=== PATIENT | male | born 1950 | race Caucasian/White ===

== ENCOUNTER 2025-05-19 07:30 | Observation (INO) ==
--- NOTE | 2025-04-25 09:48 | PAT Medication Instructions ---
Medication Instructions Date of Service April 25, 2025 Home Medications amlodipine 10 mg tablet 10 mg PO QAM aspirin 81 mg capsule 81 mg PO QPM carvedilol 6.25 mg tablet 6.25 mg PO BID duloxetine 30 mg capsule,delayed release 30 mg PO QAM empagliflozin 25 mg tablet (Jardiance) 25 mg PO QAM ferrous sulfate 325 mg (65 mg iron) tablet 325 mg PO QDL insulin glargine 100 unit/mL (3 mL) subcutaneous pen (Lantus Solostar U-100 Insulin) 20 unit subcut QAM insulin lispro 100 unit/mL subcutaneous pen 1 sliding scale dose subcut USEASDIRECTD lisinopril 20 mg tablet 20 mg PO QPM metformin 500 mg tablet 500 mg PO BID pregabalin 75 mg capsule (Lyrica) 75 mg PO TID tamsulosin 0.4 mg capsule (Flomax) 0.8 mg PO QAM rosuvastatin 20 mg tablet 20 mg PO QPM ASK your prescriber and surgeon aspirin 81 mg capsule 81 mg PO QPM STOP taking 3 days before surgery empagliflozin 25 mg tablet (Jardiance) 25 mg PO QAM DO NOT take the morning of surgery ferrous sulfate 325 mg (65 mg iron) tablet 325 mg PO QDL insulin lispro 100 unit/mL subcutaneous pen 1 sliding scale dose subcut USEASDIRECTD metformin 500 mg tablet 500 mg PO BID Take morning of surgery With a small sip of water, OTHERWISE NOTHING TO EAT OR DRINK AFTER MIDNIGHT: amlodipine 10 mg tablet 10 mg PO QAM carvedilol 6.25 mg tablet 6.25 mg PO BID duloxetine 30 mg capsule,delayed release 30 mg PO QAM pregabalin 75 mg capsule (Lyrica) 75 mg PO TID tamsulosin 0.4 mg capsule (Flomax) 0.8 mg PO QAM Take evening before surgery carvedilol 6.25 mg tablet 6.25 mg PO BID insulin lispro 100 unit/mL subcutaneous pen 1 sliding scale dose subcut USEASDIRECTD lisinopril 20 mg tablet 20 mg PO QPM metformin 500 mg tablet 500 mg PO BID pregabalin 75 mg capsule (Lyrica) 75 mg PO TID rosuvastatin 20 mg tablet 20 mg PO QPM Insulin Dependent Diabetic Patients * Test your blood sugar the morning of surgery * If Blood Sugar is GREATER THAN 150, take HALF of your regular dose of: insulin glargine 100 unit/mL (3 mL) subcutaneous pen (Lantus Solostar U-100 Insulin) * If Blood Sugar is LESS THAN 150, DO NOT TAKE ANY: insulin glargine 100 unit/mL (3 mL) subcutaneous pen (Lantus Solostar U-100 Insulin) Other Notes If you have any questions please call us at [phone] or [phone] or [phone] or [phone]
--- NOTE | 2025-05-01 14:49 | Anesthesiology Consultation ---
Date of Service May 01, 2025 Assessment & Plan (1) Encounter for pre-operative examination: awaiting: - repeat potassium level ordered by nephrology and will request if more recent carotid imaging was done as indicated in 01/14/2025 vascular note. - cardiology clearance 05/05/25: "...low to intermediate cardiac risk..." - nephrology clearance 05/02/25: "...does not follow strict low-potassium diet...renal function is remaining stable...hyperkalemia advised to increase Lokelma to 10 g oral TID x 2 days and then go back to daily...repeat serum potassium level next week..." - surgeon ordered PCP clearance 04/30/25: "...moderate to high risk...average to high risk for secondary complications from any surgery. However, it is my belief that his chronic medical conditions are as optimized as they are likely to be and should proceed with the surgery..." - vascular surgery office note 01/14/25: "...no new complaints...denies the presence of focal neuro deficits...severe right ICA stenosis and mild left ICA stenosis, stable, asymptomatic. This is not yet at the severity to consider intervention. Discussed this with the patient as well as the recommendation to f/u in 6 months with a repeat duplex...carotid dopplers were done today..." - surgical clearance given parathyroidectomy 01/2025: "...6 weeks after his previous surgery lapsed on 03/17/2025...cleared to have back surgery..." Chart Review Chart Review: Pending: Refer to Additional Notes / Consult section and Patient seen in Pre Admission Testing Teaching & Discussion Pre-Anesthesia Teaching/Discussion Notes: Instructed NPO after midnight before surgery, except medications with 15 cc of water. Medication instructions provided according to the PAT guidelines. History Surgery Operation Date: 05/19/25 07:45 Proposed Procedures p L3-S1 Decompression and Fusion with Spinal Cord Monitoring - Mushtaq Mitchell DO Height/Weight Height: 5 ft 8 in Weight: 83.2 kg Allergies Allergy/AdvReac Type Severity Reaction Status Date / Time morphine Allergy Severe Anaphylaxis Verified 04/24/25 14:58 Medications Home Medications Medication Instructions Recorded Confirmed Last Taken amlodipine 10 mg tablet 10 mg PO QAM 10/22/24 04/24/25 Unknown aspirin 81 mg capsule 81 mg PO QPM 10/22/24 04/24/25 Unknown carvedilol 6.25 mg tablet 6.25 mg PO BID 10/22/24 04/24/25 Unknown duloxetine 30 mg capsule,delayed 30 mg PO QAM 10/22/24 04/24/25 Unknown release empagliflozin 25 mg tablet 25 mg PO QAM 10/22/24 04/24/25 Unknown (Jardiance) ferrous sulfate 325 mg (65 mg 325 mg PO QDL 10/22/24 04/24/25 Unknown iron) tablet insulin glargine 100 unit/mL (3 20 unit subcut QAM 10/22/24 04/24/25 Unknown mL) subcutaneous pen (Lantus Solostar U-100 Insulin) insulin lispro 100 unit/mL 1 sliding scale dose subcut 10/22/24 04/24/25 Unknown subcutaneous pen USEASDIRECTD lisinopril 20 mg tablet 20 mg PO QPM 10/22/24 04/24/25 Unknown metformin 500 mg tablet 500 mg PO BID 10/22/24 04/24/25 Unknown pregabalin 75 mg capsule (Lyrica) 75 mg PO TID 10/22/24 04/24/25 Unknown tamsulosin 0.4 mg capsule (Flomax) 0.8 mg PO QAM 10/22/24 04/24/25 Unknown rosuvastatin 20 mg tablet 20 mg PO QPM 04/24/25 04/24/25 Unknown semaglutide 0.25 mg or 0.5 mg (2 mg subcut 05/01/25 Unknown mg/1.5 mL) subcutaneous pen injector Past Medical History Medical History Anemia BPH (benign prostatic hyperplasia) CAD (coronary artery disease) CABG x4 (2014) Cardiac stents 2 or 3 (most recent ~2011) Now follows with Dr Vinay Shirley Carotid artery stenosis Follows with vascular (Dr. Bettencourt) Diabetes mellitus, type 2 IDDM Hearing deficit History of basal cell carcinoma History of bloody stools 03/2025 - reason for Colon/EGD - unfounded - related to hemorrhoids History of [place] (myocardial infarction) (2008) History of shingles Hx 12/2023 Residual has nerve pain, taking duloxetine Hypertension controlled, stable per pt Patient denies h/o stroke, seizures, heart failure, blood clots/DVTs or blood transfusions. Exercise / Class Metabolic Activity III < 4 Walking/Shop/Light housework (ambulates with cane, denies chest discomfort or shortness of breath with usual activities) Past Family History Family History Other No family history of adverse response to anesthesia Past Surgical History Surgical History History of basal cell carcinoma (BCC) excision removed in office History of bilateral cataract extraction History of bone marrow biopsy (03/12/25) [facility] History of cardiac cath Stents 2 or 3 total (most recent 2011), [facility] [place] CABG x4 (2014), [place] 11/2024, while in hospital w/flu, no stents, [facility] [place] History of colonoscopy (03/18/25) History of esophagogastroduodenoscopy (EGD) (03/18/25) History of left inguinal hernia repair History of parathyroidectomy (02/03/25) [facility] History of quadruple bypass (2014) CABG x4, History of right inguinal hernia repair History of sinus surgery History of wisdom tooth extraction Past Anesthesia History No Hx of Anesthesia Complications and No Family Hx of Anesthesia Complications History of PONV No Hx of PONV and No Hx of Motion Sickness Social History Smoking Status: Former smoker Do You Dip or Chew Tobacco: No (occasional early 20's only) Smoking End Date: in early only Hx Alcohol Use: Yes Alcohol type: beer alcohol intake frequency: holidays/special occasions only Hx Substance Use: No substance use type: does not use Review of Systems Snoring, denies witnessed apneas. Patient denies chest pain, shortness of breath, dyspnea on exertion, reflux, fever, chills, cough, wheezing, or palpitations. Physical Exam Vital Signs Vitals BP 128/65 P 65 TEMP 97.7 SP02 94% on RA RESP Physical Patient resting comfortably in chair in no acute distress, alert and oriented, responding appropriately throughout visit Full cervical extension range of motion without pain TMD 3.5 finger breadths Mallampati Score 3 Dentition: intact, denies chipped or loose teeth, caps/crowns, implants or bridges Lungs: normal respiratory effort. Good air movement, clear throughout to auscultation, no adventitious breath sounds Cardiac: regular rate and rhythm, no murmurs noted Carotid arteries: negative bruit bilat Lab Results Anesthesia Preop Results Results Anesthesia Widget: WBC 8.56 K/ul (4.8-10.8) 03/12/25 Hgb 10.2 g/dl (14.0-18.0) L 03/12/25 Hct 31.9 % (42.0-52.0) L 03/12/25 Plt 297 K/uL (130-400) 03/12/25 Na 137 mmol/L (136-145) 05/01/25 K 6.1 mmol/L (3.5-5.1) H* 05/01/25 Cl 106 mmol/L (98-107) 05/01/25 CO2 25 mmol/L (21-32) 05/01/25 BUN 40 mg/dl (6-23) H 05/01/25 Creat 1.81 mg/dl (0.6-1.4) H 05/01/25 Glucose Level 166 mg/dl (70-99(Fasting)) H 05/01/25 PT 10.2 Seconds (9.0-12.0) 05/01/25 PTT 27 Seconds (21-31) 05/01/25 INR 0.9 (0.9-1.1) 05/01/25 HA1c 7.0 % (4.5-5.6) H 05/01/25 Urine Color Dark Yellow 05/01/25 Urine Appearance Clear (Clear) 05/01/25 Urine pH 5.0 (4.5-7.5) 05/01/25 Urine Specific [place] 1.028 (1.000-1.030) 05/01/25 Urine Protein 1+ (Negative) H 05/01/25 Urine Glucose (UA) 2+ (Negative) H 05/01/25 Urine Ketones Trace (Negative) H 05/01/25 Urine Blood Negative (Negative) 05/01/25 Urine Nitrite Negative (Negative) 05/01/25 Urine Bilirubin Negative (Negative) 05/01/25 Urine Urobilinogen Negative (Negative) 05/01/25 Urine Leukocyte Esterase Negative (Negative) 05/01/25 Urine WBC (Auto) 0-5 /hpf (0-5) 05/01/25 Urine RBC (Auto) 0-2 /hpf (0-2) 05/01/25 Urine Hyaline Casts (Auto) 0-2 /lpf (0-2) 05/01/25 Urine Epithelial Cells (Auto) 0-2 /hpf (0-2) 05/01/25 Urine Bacteria (Auto) None Seen (None Seen) 05/01/25 Blood Type A Negative 05/01/25 Antibody Screen NEGATIVE 05/01/25 Testing Laboratory Results Critical K was called to surgeon's office. Will also await PCP clearance. I also spoke with Eve with nephrology office regarding K of 6.1 who states she will notify provider. Electrocardiogram Date: 11/04/24 Sinus bradycardia, rate 57 bpm Chest X-Ray Date: 11/04/24 There is prior CABG. There is mild cardiomegaly without pulmonary vascular congestion. No effusion, consolidation, or pneumothorax. IMPRESSION: No acute findings. Echocardiogram Date: 10/24/23 EF 50-55% Mildly dilated RV, mild to moderately reduced systolic function Moderate mitral valve regurgitation Mild aortic regurgitation Mild tricuspid regurgitation RVSP/PASP is normal and measures < 30 mmHg Cardiac Catheterization Date: 12/18/24 Left main: heavily calcified 90% stenosis LAD: long heavily calcified severe diffuse 90% proximal stenosis at midsegment receives the PENNY, LAD upstream and downstream from the PENNY anastomosis that is patent-20% stenosis in graft LCx: 80% stenosis, mid segment receives SVG downstream is patent RCA: severe in-stent restenosis followed by chronic 100% total occlusion fills from the SVG, uptstream and downstream sites are patent Maximal medical therapy Other Testing Carotid doppler 07/10/24 > 70% stenosis right ICA < 50% stenosis left ICA
[2025-05-19] MEDS: ACETAMINOPHEN 500 MG TAB PO SCH (08:00)
[2025-05-19] MEDS: GABAPENTIN 300 MG CAP PO SCH (08:00)
[2025-05-19] MEDS: CeleBREX 200 MG CAP PO SCH (08:00)
[2025-05-19] MEDS: LR 60ML/HR IV SCH (08:01)
[2025-05-19] MEDS: LR 15ML/HR IV SCH (08:01)
[2025-05-19] MEDS ORDERED: LANTUS PER UNIT CHARGE SQ ONE (08:15)
[2025-05-19] MEDS: SODIUM CHLORIDE 0.9% 1,000 ML IV SCH (08:22)
[2025-05-19] MEDS ORDERED: MIDAZOLAM HCL 1 MG/ML 2ML VIAL ONE (08:36)
[2025-05-19] MEDS ORDERED: LIDOCAINE 2% 2 ML VIAL/AMP(20MG/ML) INFIL ONE ×2 (08:37)
[2025-05-19] MEDS ORDERED: ONDANSETRON INJ 2 MG/ML 2 ML VIAL ONE (08:38)
[2025-05-19] MEDS ORDERED: PROPOFOL IV EMULSION 10 MG/ML 20 ML VIAL IV ONE (08:38)
[2025-05-19] MEDS ORDERED: ROCURONIUM BROMIDE 10 MG/ML 5 ML VIAL IV ONE ×3 (08:38→11:29)
[2025-05-19] MEDS ORDERED: DEXAMETHASONE SOD INJ 4 MG/ML VIAL ONE (08:38)
[2025-05-19] MEDS: NovoLIN-R INSULIN PER UNIT CHARGE SQ ONE (08:42)
[2025-05-19 09:01] LABS: Anion Gap 6.0 (3-11); Blood Urea Nitrogen 33.0 mg/dl (6-23); Calcium 8.5 mg/dl (8.6-10.3); Carbon Dioxide 24.0 mmol/L (21-32); Chloride 109.0 mmol/L (98-107); Creatinine Clr Calc Pharmacy 41.3 ml/min; Glucose 174.0 mg/dl (70-99(Fasting)); Potassium 4.2 mmol/L (3.5-5.1); Sodium 139.0 mmol/L (136-145)
--- NOTE | 2025-05-19 09:23 | History & Physical Bridge Note ---
Date of Service May 19, 2025 History & Physical Bridge Note I have examined the patient, reviewed the History & Physical and in the interval since the performance of the History & Physical I have noted the following changes of clinical significance: no changes noted
--- NOTE | 2025-05-19 09:24 | History & Physical Report ---
Date of Service May 19, 2025 Assessment & Plan (1) Multilevel lumbosacral spondylosis with radiculopathy: Plan: Decompression and fusion L3-S1 History of Present Illness Chief Complaint: Back and leg pain Primary Care Provider: TEZ Chavez This is a 75-year-old male who presents chronic persistent back and leg pain of failing course of nonoperative care is here for surgical invention. Allergies Allergy/AdvReac Type Severity Reaction Status Date / Time morphine Allergy Severe Anaphylaxis Verified 05/19/25 07:37 Home Medications Medication Instructions Recorded Confirmed Type amlodipine 10 mg tablet 10 mg PO QAM 10/22/24 05/19/25 History aspirin 81 mg capsule 81 mg PO QPM 10/22/24 05/19/25 History carvedilol 6.25 mg tablet 6.25 mg PO BID 10/22/24 05/19/25 History duloxetine 30 mg capsule,delayed 30 mg PO QAM 10/22/24 05/19/25 History release empagliflozin 25 mg tablet 25 mg PO QAM 10/22/24 05/19/25 History (Jardiance) ferrous sulfate 325 mg (65 mg 325 mg PO QDL 10/22/24 05/19/25 History iron) tablet insulin glargine 100 unit/mL (3 20 unit subcut QAM 10/22/24 05/19/25 History mL) subcutaneous pen (Lantus Solostar U-100 Insulin) insulin lispro 100 unit/mL 1 sliding scale dose subcut 10/22/24 05/19/25 History subcutaneous pen USEASDIRECTD lisinopril 20 mg tablet 20 mg PO QPM 10/22/24 05/19/25 History metformin 500 mg tablet 500 mg PO BID 10/22/24 05/19/25 History pregabalin 75 mg capsule (Lyrica) 75 mg PO TID 10/22/24 05/19/25 History tamsulosin 0.4 mg capsule (Flomax) 0.8 mg PO QAM 10/22/24 05/19/25 History rosuvastatin 20 mg tablet 20 mg PO QPM 04/24/25 05/19/25 History semaglutide 0.25 mg or 0.5 mg (2 0.25 mg subcut WK 05/01/25 05/19/25 History mg/1.5 mL) subcutaneous pen injector sodium zirconium cyclosilicate 10 10 g PO DAILY 05/19/25 05/19/25 History gram oral powder packet (Lokelma) Past Med/Surg History Problem List (Updated 05/19/25 @ 09:24 by Mushtaq Mitchell, DO) Multilevel lumbosacral spondylosis with radiculopathy Medical History Anemia BPH (benign prostatic hyperplasia) CAD (coronary artery disease) CABG x4 (2014) Cardiac stents 2 or 3 (most recent ~2011) Now follows with Dr Vinay Sewell Carotid artery stenosis Follows with vascular (Dr. Bettencourt) Diabetes mellitus, type 2 IDDM Hearing deficit History of basal cell carcinoma History of bloody stools 03/2025 - reason for Colon/EGD - unfounded - related to hemorrhoids History of [place] (myocardial infarction) (2008) History of shingles Hx 12/2023 Residual has nerve pain, taking duloxetine Hypertension controlled, stable per pt Surgical History History of basal cell carcinoma (BCC) excision removed in office History of bilateral cataract extraction History of bone marrow biopsy (03/12/25) [facility] History of cardiac cath Stents 2 or 3 total (most recent 2011), [facility] [place] CABG x4 (2014), [place] 11/2024, while in hospital w/flu, no stents, [facility] History of colonoscopy (03/18/25) History of esophagogastroduodenoscopy (EGD) (03/18/25) History of left inguinal hernia repair History of parathyroidectomy (02/03/25) [facility] History of quadruple bypass (2014) CABG x4, History of right inguinal hernia repair History of sinus surgery History of wisdom tooth extraction Family History Other No family history of adverse response to anesthesia Social History Smoking Status: Former smoker Tobacco Type: Cigarettes and Smokeless Tobacco (Dip or Chew) Smoking End Date: in early only; Second Hand Exposure: No; Do You Dip or Chew Tobacco: No (occasional early 20's only); Tobacco Cessation Education Requested by Patient: No Hx Alcohol Use: Yes Alcohol type: beer Hx Substance Use: No Preferred Language: Israeli Communication Ability: Effective Needle Loom Tender Required: No Beliefs That Will Affect Care: None Current Living Situation: Spouse Other Information That Helps Us Care for You: No Feels Safe at Home: Yes Safety Concerns: Feels Safe At This Time Assistive Devices: Cane and Hearing Aid - Bilateral Physical Exam Physical Exam: Patient is alert and oriented Heart regular Lungs clear Results & Data Results & Data Vital Signs (Past 12 Hours) Vital Signs Temp Pulse Resp BP Pulse Ox O2 Del Method 05/19/25 07:45 36.6 C 68 20 181/75 H 94 Room Air
[2025-05-19] MEDS: ceFAZolin 330 MG/ML 1 GM VIAL ONE (10:23)
[2025-05-19] MEDS: BUPIVACAINE/EPINEPHRINE 0.25% 1:200,000 30 ML VIAL ONE (10:24)
[2025-05-19] MEDS ORDERED: NOREPINEPHRINE BITARTRATE 1 MG/ML 4 ML VIAL IV ONE (10:28)
[2025-05-19] MEDS ORDERED: SUGAMMADEX SODIUM 200 MG/2 ML VIAL IV ONE (11:49)
[2025-05-19] MEDS: FLOSEAL HEMOSTATIC MATRIX 10ML TOP ONE (12:30)
[2025-05-19] MEDS ORDERED: ALBUMIN HUMAN 5% 12.5 GM/250 ML VIAL IV ONE (12:33)
--- NOTE | 2025-05-19 12:45 | Operative Report ---
Post Operative Report Pre & Post Diagnosis Operation Date: 05/19/25 09:05 Pre-Op Diagnosis: #1 multilevel lumbosacral spondylosis with radiculopathy #2 lumbar spinal stenosis Post-Op Diagnosis: Same I identified the patient and participated in the time-out.: Yes Procedure Operation Date: 05/19/25 09:05 Actual Procedures #1 lumbar decompression bilaterally facetectomies and foraminotomies L2-L3, L3- L4, L4-L5 and L5-S1 2 posterior spinal fusion L3-S1. #3 placement posterior segmental instrumentation L3-S1. #4 interbody fusion L3-L4, L4-L5 and L5-S1. #5 placement of Spira 10 x 26 mm at L3-L4, 10 x 26 mm x 2 at L4-L5 and lastly 12 x 26 mm x 2 at L5-S1. #6 placement locally harvested morselized autograft in the posterior gutters per #7 placement of Proteus bone graft combined with Koros in the posterior lateral gutters and os design in the interbody space. #8 application of versa wrap over the exposed dura. Surgeon Mushtaq Mitchell, DO Compressor Battery Pellets Iram Nunez Estimated Blood Loss 750 Findings Consistent with Post-Op Diagnosis Specimens None Indications This is a 75-year-old male presents from his diagnosis after failing course of nonoperative care is here for surgical invention. Description of Procedure Patient was met with identified informed consent team. Patient was then taken to the operative suite underwent the patient placed in a prone position on the Devyn table top of the Prateek frame. All bony prominences well-padded eyes inspected to ensure no external precipice upon the. This point lumbar spine was prepped and draped in a normal sterile fashion. Sharp dissection with the assistance of Bovie cautery from down to and exposing the lamina transverse processes L3-S1. From a [place] 5 fashion complete laminectomy of L5 was performed including bilateral medial facetectomies and foraminotomies followed by complete laminectomy of L4 with bilateral medial facetectomies and foraminotomies followed by complete laminectomy L3 with bilateral medial facetectomies and foraminotomies and lastly partial laminectomy of L2 with bilateral medial facetectomies to address all subarticular stenosis. Severe neural compression was noted at all levels of the spine and all nerves decompress. Pedicle screws then placed in L3-L4-L5 and S1 levels bilaterally with assistance of fluoroscopy in the process fabricio contoured and placed bilaterally. Bilateral transforaminal portion right discectomy of L5-S1 was performed endplates corrected to subcortical bone bone a 12 x 26 mm spiral cage tapped into position. Then proceeded to the left transforaminal region L5-S1. Again discectomy performed. Endplates guided to subcortical main bone and a second 12 x 26 mm spiral cage tapped into position. Then proceeded to L4-L5 by way of transfer approach on the left discectomy was performed. Endplates guided to subcortical bleeding bone and a 10 x 26 mm spiral cage tapped in position. Then proceeded to the right transforaminal region at all 4 L5. Again discectomy performed. Endplates guided to subcortical bleeding bone and a second 10 x 26 mm spiral cage tapped into position. Lastly approached L3-L4 and by way of a transforaminal approach on the right and complete discectomy performed. Endplates guided to subcortical bony bone and a 10 x 26 mm spiral cage tapped into position. Please note all cages were packed with os design bone graft prior to placement. The rods were then compressed locked in 5 position bilaterally. The transverse processes of L3-L4-L5 and the sacral ala burred to subcortically bone. Proteus combined with Koros and local autograft placed in posterolateral gutters. Versa wrap placed of the exposed dura. 15 round JUAN drain inserted. The incision was then closed with 1 Vicryl the fascia 2-0 Vicryl subcutaneously and 4 Monocryl for final skin closure. Steri-Strips sterile dressing placed. Patient waken taken to PACU in stable condition. Please note Iram Nunez was present at the entire procedure and brought the patient positioning complex portion of the surgery and final skin closure. I attest to the content of the Intraoperative Record and any orders documented therein. Any exceptions are noted below.
--- NOTE | 2025-05-19 12:48 | Fluoroscopy Report ---
FL lumbar spine 2-3V CLINICAL HISTORY: L3-S1 DECOMPRESSION/ FUSION COMPARISON STUDY: None FLUOROSCOPY TIME: 29 seconds FLUOROSCOPY IMAGES: 3 EXPOSURE DOSE: 21 mGy FINDINGS: Fluoroscopy was provided for lumbar fusion. IMPRESSION: Intraoperative fluoroscopy. ACT 112: Negative or not required by law. Electronically signed by: Grupo Sewell M.D. 05/19/2025 12:46 PM
[2025-05-19] MEDS ORDERED: ATROPINE SULFATE 0.1 MG/ML 10ML SYR IV PRN (13:06)
[2025-05-19] MEDS ORDERED: STAT IV Infusion **Titration per Protocol STA (13:07)
[2025-05-19] MEDS: NOREPINEPHRINE/D5W 4 MG/250 ML PLCT IV SCH (13:10)
--- NOTE | 2025-05-19 14:40 | XRay Report ---
XR chest 1V portable CLINICAL HISTORY: hypotension COMPARISON STUDY: 11/04/2024 FINDINGS: Stable CABG. There is increased cardiomegaly with pulmonary vascular congestion. There are interval diffuse interstitial and faint patchy pulmonary opacities. No pleural effusion or pneumothor ax. IMPRESSION: 1. CHF. 2. Interval pulmonary opacities could represent pneumonia or pulmonary edema. ACT 112: Negative or not required by law. Electronically signed by: Grupo Sewell M.D. 05/19/2025 2:38 PM
--- NOTE | 2025-05-19 15:00 | Anesthesiology Progress Note ---
Date of Service May 19, 2025 Anesthesia Post Procedure Vital Signs Vital Signs: Temp Pulse Pulse Resp BP BP Pulse Ox 05/19/25 14:50 60 15 115/45 L 109/64 96 05/19/25 14:40 60 12 116/46 L 110/53 L 96 05/19/25 14:30 67 18 112/53 L 127/67 95 05/19/25 14:20 60 14 124/56 L 103/57 L 92 05/19/25 14:10 65 17 114/47 L 120/39 L 92 05/19/25 14:00 51 L 7 L 121/47 L 94/52 L 100 05/19/25 13:50 56 L 9 L 107/48 L 109/53 L 93 05/19/25 13:40 57 L 14 121/51 L 108/55 L 97 05/19/25 13:30 36.4 C L 56 L 14 107/53 L 101/59 L 96 05/19/25 13:20 56 L 12 115/50 L 96/53 L 98 05/19/25 13:11 36.1 C L 59 L 17 81/41 L 89/43 L 94 05/19/25 07:45 36.6 C 68 20 181/75 H 94 O2 Del Method O2 Flow Rate 05/19/25 14:50 Nasal Cannula 3 05/19/25 14:40 Nasal Cannula 3 05/19/25 14:30 Nasal Cannula 3 05/19/25 14:20 Nasal Cannula 3 05/19/25 14:10 Nasal Cannula 3 05/19/25 14:00 Nasal Cannula 3 05/19/25 13:50 Nasal Cannula 3 05/19/25 13:40 Oxymask 9 05/19/25 13:30 Oxymask 9 05/19/25 13:20 Oxymask 9 05/19/25 13:11 Oxymask 9 05/19/25 07:45 Room Air Pain Intensity Back: Pain Intensity: 4 Transfer of Care Handoff Completed per policy Notes Mental Status: alert / awake / arousable and participated in evaluation Patient Amnestic to Procedure: Yes Nausea / Vomiting: adequately controlled Pain: adequately controlled Airway Patency, RR, SpO2: stable & adequate BP & HR: stable & adequate and see Notes below Hydration State: stable & adequate Anesthetic Complications: no major complications apparent and Pt Satisfied with anesthetic care Notes: weaned off of Norepinephrine in PACU Will go to Telemetry(med) for observation.
[2025-05-19 15:21] LABS: Hematocrit (blood only) 31.7 % (42.0-52.0); Hemoglobin 10.0 g/dl (14.0-18.0); Immature Granulocytes # (auto) 0.10 K/uL (0.01-0.20); Immature Granulocytes % (auto) 0.8 %; Mean Corpuscular Hemoglobin 30.2 pg (25.0-34.0); Mean Corpuscular Volume 95.8 fL (80.0-100.0); Platelet Count 213 K/uL (130-400); RDW Standard Deviation 66.3 fL (36.4-46.3); Red Blood Count 3.31 M/uL (4.70-6.10); White Blood Count 12.54 K/ul (4.8-10.8)
[2025-05-19 15:39] LABS: Anion Gap 5.0 (3-11); Anion Gap 6.0 (3-11); Blood Urea Nitrogen 35.0 mg/dl (6-23); Calcium 7.4 mg/dl (8.6-10.3); Carbon Dioxide 21.0 mmol/L (21-32); Carbon Dioxide 22.0 mmol/L (21-32); Chloride 114.0 mmol/L (98-107); Creatinine Clr Calc Pharmacy 38.9 ml/min; Creatinine Clr Calc Pharmacy 39.6 ml/min; Glucose 191.0 mg/dl (70-99(Fasting)); Glucose 197.0 mg/dl (70-99(Fasting)); Potassium 4.5 mmol/L (3.5-5.1); Sodium 141.0 mmol/L (136-145)
[2025-05-19] MEDS ORDERED: ACETAMINOPHEN 1,000 MG/100 ML VIAL IV PRN (16:05)
[2025-05-19] MEDS ORDERED: ALUMINUM/MAGNESIUM SUSP 30 ML UDC PO PRN (16:05)
[2025-05-19] MEDS ORDERED: NALOXONE HCL 0.4 MG/1 ML VIAL/CARP IV PRN (16:05)
[2025-05-19] MEDS ORDERED: HYDROmorphone INJ 0.5 MG/0.5 ML SYR IV PRN (16:05)
[2025-05-19] MEDS ORDERED: PROMETHAZINE 12.5 MG/50.5 ML BAG IV PRN (16:05)
[2025-05-19] MEDS ORDERED: HYDROmorphone INJ 1 MG/ML SYRINGE IV PRN (16:05)
[2025-05-19] MEDS ORDERED: diphenhydrAMINE Capsule 25 MG CAP PO PRN (16:05)
[2025-05-19] MEDS ORDERED: LORazepam 0.5 MG TAB PO PRN (16:05)
[2025-05-19] MEDS ORDERED: FAMOTIDINE 20 MG TAB PO PRN (16:05)
[2025-05-19] MEDS ORDERED: PHARMACY GLYCEMIC MGMT CONSULT PRN (16:05)
[2025-05-19] MEDS ORDERED: SOD PHOSPHATE/SOD BIPHOSPHATE ENEMA 132 ML BTL PR PRN (16:05)
[2025-05-19] MEDS ORDERED: MAGNESIUM HYDROXIDE SUSP 30 ML UDC PO PRN (16:05)
[2025-05-19] MEDS: LACTATED RINGER'S 1,000 ML IV SCH (16:05)
[2025-05-19] MEDS ORDERED: ONDANSETRON 4 MG OD TAB PO PRN (16:05)
[2025-05-19] MEDS ORDERED: METOCLOPRAMIDE HCL INJ 5 MG/ML 2 ML VIAL IV PRN (16:05)
[2025-05-19] MEDS: [UNRECOGNIZED DRUG - REMARK] IV ONE (16:05)
[2025-05-19] MEDS ORDERED: DO NOT ADMINISTER PNEUMOCOCCAL VACCINE PRN (16:05)
[2025-05-19] MEDS ORDERED: ONDANSETRON INJ 2 MG/ML 2 ML VIAL IV PRN (16:05)
[2025-05-19] MEDS ORDERED: DO NOT ADMINISTER FLU VACCINE PRN (16:05)
--- NOTE | 2025-05-19 16:34 | Hospitalist Consultation ---
Date of Consultation May 19, 2025 Assessment & Plan (1) Postoperative hypotension: He transiently required Levophed while in the PACU. This has since been weaned off. He denies chest pain. No acute EKG changes. Continue telemetry. Hold amlodipine and lisinopril for now (2) Essential hypertension: Postoperative hypotension has resolved. Continue Coreg. Amlodipine and lisinopril are temporarily on hold (3) Type 2 diabetes mellitus: ADA diet. Sliding scale coverage. Hold metformin (4) BPH (benign prostatic hyperplasia): Stable. Continue Flomax therapy Plan Eventual discharge to home per primary service. The hospitalist service will follow and manage the medical problems daily History of Present Illness Reason for Consultation: Postoperative hypotension Requesting Physician: Dr. Kt Mitchell Attending Physician: Mushtaq Mitchell, History of Present Illness 75-year-old white male with a history of coronary artery disease and bypass grafting, essential hypertension, type 2 diabetes, and BPH. He underwent elective lumbar surgery today and was hypotensive in the PACU temporarily requiring vasopressor support. He denies chest pain and stat EKG reveals no acute changes. Stat chest x-ray was interpreted as CHF but the patient denies shortness of breath and I do not see pulmonary vascular congestion or fluid overload although he has some infiltrates bilaterally on the x-ray that may be atelectatic postoperatively. His blood pressure responded to IV fluids and the Levophed has subsequently been weaned off. He has since been transferred to a telemetry monitored bed and is hemodynamically stable. Allergies Allergy/AdvReac Type Severity Reaction Status Date / Time morphine Allergy Severe Anaphylaxis Verified 05/19/25 07:37 Home Medications Medication Instructions Recorded Confirmed Type amlodipine 10 mg tablet 10 mg PO QAM 10/22/24 05/19/25 History aspirin 81 mg capsule 81 mg PO QPM 10/22/24 05/19/25 History carvedilol 6.25 mg tablet 6.25 mg PO BID 10/22/24 05/19/25 History duloxetine 30 mg capsule,delayed 30 mg PO QAM 10/22/24 05/19/25 History release empagliflozin 25 mg tablet 25 mg PO QAM 10/22/24 05/19/25 History (Jardiance) ferrous sulfate 325 mg (65 mg 325 mg PO QDL 10/22/24 05/19/25 History iron) tablet insulin glargine 100 unit/mL (3 20 unit subcut QAM 10/22/24 05/19/25 History mL) subcutaneous pen (Lantus Solostar U-100 Insulin) insulin lispro 100 unit/mL 1 sliding scale dose subcut 10/22/24 05/19/25 History subcutaneous pen USEASDIRECTD lisinopril 20 mg tablet 20 mg PO QPM 10/22/24 05/19/25 History metformin 500 mg tablet 500 mg PO BID 10/22/24 05/19/25 History pregabalin 75 mg capsule (Lyrica) 75 mg PO TID 10/22/24 05/19/25 History tamsulosin 0.4 mg capsule (Flomax) 0.8 mg PO QAM 10/22/24 05/19/25 History rosuvastatin 20 mg tablet 20 mg PO QPM 04/24/25 05/19/25 History semaglutide 0.25 mg or 0.5 mg (2 0.25 mg subcut WK 05/01/25 05/19/25 History mg/1.5 mL) subcutaneous pen injector sodium zirconium cyclosilicate 10 10 g PO DAILY 05/19/25 05/19/25 History gram oral powder packet (Lokelma) Patient History Medical History Anemia BPH (benign prostatic hyperplasia) CAD (coronary artery disease) CABG x4 (2014) Cardiac stents 2 or 3 (most recent ~2011) Now follows with Dr Vinay Shirley Carotid artery stenosis Follows with vascular (Dr. Bettencourt) Diabetes mellitus, type 2 IDDM Hearing deficit History of basal cell carcinoma History of bloody stools 03/2025 - reason for Colon/EGD - unfounded - related to hemorrhoids History of CT (myocardial infarction) (2008) History of shingles Hx 12/2023 Residual has nerve pain, taking duloxetine Hypertension controlled, stable per pt Surgical History History of basal cell carcinoma (BCC) excision removed in office History of bilateral cataract extraction History of bone marrow biopsy (03/12/25) [facility] History of cardiac cath Stents 2 or 3 total (most recent 2011), [facility] CABG x4 (2014), breaks 11/2024, while in hospital w/flu, no stents, ph [place] History of colonoscopy (03/18/25) History of esophagogastroduodenoscopy (EGD) (03/18/25) History of left inguinal hernia repair History of parathyroidectomy (02/03/25) [facility] History of quadruple bypass (2014) CABG x4, History of right inguinal hernia repair History of sinus surgery History of wisdom tooth extraction Family History Other No family history of adverse response to anesthesia Social History Smoking Status: Former smoker Tobacco Type: Cigarettes and Smokeless Tobacco (Dip or Chew) Smoking End Date: in early 20's only; Second Hand Exposure: No; Do You Dip or Chew Tobacco: No (occasional early 20's only); Tobacco Cessation Education Requested by Patient: No Hx Alcohol Use: Yes Alcohol type: beer Hx Substance Use: No Preferred Language: Trinidadian Communication Ability: Effective Threading Machine Feeder Automatic Required: No Beliefs That Will Affect Care: None Current Living Situation: Spouse Other Information That Helps Us Care for You: No Feels Safe at Home: Yes Safety Concerns: Feels Safe At This Time Assistive Devices: Cane and Hearing Aid - Bilateral Review of Systems 2 Review of Systems: Constitutionalno fever or chills ENTno blurred vision, no double vision, no epistaxis, no sore throat Respiratoryno cough, no wheezing, no shortness of breath Cardiacno palpitations, no chest pain, no syncope Ana nausea, vomiting, diarrhea, melena, hematochezia GUno urinary retention, no urinary incontinence, no dysuria, no hematuria Musculoskeletalno joint pain, no muscle tenderness. Postoperative lumbar discomfort as expected Skinno bruising, no rashes, no pruritus Neurono isolated weakness, no paresthesia, no weakness Psychno depression, no anxiety Physical Exam 2 Physical Exam: General-awake but slightly lethargic from general anesthesia. No fever HEENT-head atraumatic and normocephalic, pupils equal and reactive to light, extraocular muscles intact Neck-no lymphadenopathy or thyromegaly, trachea midline Chest-clear to auscultation anteriorly. No rales, wheezing or rhonchi Cardiac-regular rate and rhythm, normal S1 and S2. Occasional premature beat Abdomen-normal bowel sounds, no hepatosplenomegaly Extremities-no cyanosis, clubbing, or edema Neuro-cranial nerves II through XII intact, motor and sensory function within normal limits, strength symmetrical, no focal deficits Psych-normal affect, normal mood Results & Data Results & Data Vital Signs (Past 12 Hours) Vital Signs Temp Pulse Pulse Resp BP BP Pulse Ox 05/19/25 16:05 36.6 C 66 17 134/57 L 94 05/19/25 15:55 57 L 10 L 133/52 L 100 05/19/25 15:35 58 L 12 127/55 L 100 05/19/25 15:20 62 10 L 131/52 L 98 05/19/25 15:10 63 18 105/31 L 92 05/19/25 15:00 59 L 20 113/48 L 124/47 L 97 05/19/25 14:50 60 15 115/45 L 109/64 96 05/19/25 14:40 60 12 116/46 L 110/53 L 96 05/19/25 14:30 67 18 112/53 L 127/67 95 05/19/25 14:20 60 14 124/56 L 103/57 L 92 05/19/25 14:10 65 17 114/47 L 120/39 L 92 05/19/25 14:00 51 L 7 L 121/47 L 94/52 L 100 05/19/25 13:50 56 L 9 L 107/48 L 109/53 L 93 05/19/25 13:40 57 L 14 121/51 L 108/55 L 97 05/19/25 13:30 36.4 C L 56 L 14 107/53 L 101/59 L 96 05/19/25 13:20 56 L 12 115/50 L 96/53 L 98 05/19/25 13:11 36.1 C L 59 L 17 81/41 L 89/43 L 94 05/19/25 07:45 36.6 C 68 20 181/75 H 94 O2 Del Method O2 Flow Rate 05/19/25 16:05 Nasal Cannula 2 05/19/25 15:55 Nasal Cannula 3 05/19/25 15:35 Nasal Cannula 3 05/19/25 15:20 Nasal Cannula 3 05/19/25 15:10 Nasal Cannula 3 05/19/25 15:00 Nasal Cannula 3 05/19/25 14:50 Nasal Cannula 3 05/19/25 14:40 Nasal Cannula 3 05/19/25 14:30 Nasal Cannula 3 05/19/25 14:20 Nasal Cannula 3 05/19/25 14:10 Nasal Cannula 3 05/19/25 14:00 Nasal Cannula 3 05/19/25 13:50 Nasal Cannula 3 05/19/25 13:40 Oxymask 9 05/19/25 13:30 Oxymask 9 05/19/25 13:20 Oxymask 9 05/19/25 13:11 Oxymask 9 05/19/25 07:45 Room Air Laboratory Results 05/19/25 14:38 05/19/25 14:38 PG Care Time/CCT Total # of Minutes Spent Total Time Spent with Patient: Total time spent is greater than 50% in coordination of care (as documented) at patient's floor/unit and/or counseling patient: Coding Level of Care Code 56915 IN/OBS CONSULT LVL 4,60M Diagnoses Postoperative hypotension I95.81 Essential hypertension I10 Type 2 diabetes mellitus E11.9 BPH (benign prostatic hyperplasia) N40.0
[2025-05-19] MEDS ORDERED: GLUCAGON FOR INJ 1 MG VIAL SQ PRN (16:45)
[2025-05-19] MEDS ORDERED: CARBOHYDRATES FOR HYPOGLYCEMIA PO PRN (16:45)
[2025-05-19] MEDS ORDERED: DEXTROSE 50% 50 ML SYRINGE IV PRN (16:45)
[2025-05-19] MEDS ORDERED: GLUCOSE 10 TAB/TUBE PO PRN (16:45)
[2025-05-19] MEDS ORDERED: GLUCOSE 40% GEL 15 GM TUBE PO PRN (16:45)
[2025-05-19] MEDS: PREGABALIN 75 MG CAP PO SCH (17:06)
[2025-05-19] MEDS: LANTUS PER UNIT CHARGE SC SCH (17:50)
[2025-05-19] MEDS: INSULIN ASPART PER UNIT CHARGE SC SCH (17:50)
[2025-05-19] MEDS: DOCUSATE SODIUM/SENNA 50/8.6MG TAB PO SCH (20:29)
[2025-05-19] MEDS: ROSUVASTATIN CALCIUM 20 MG TAB PO SCH (20:29)
[2025-05-19] MEDS: ASPIRIN 81 MG ECTAB PO SCH (20:29)
[2025-05-20] MEDS: POLYETHYLENE (MIRALAX) 17 GM PACK PO SCH (06:25)
[2025-05-20 06:56] LABS: Hematocrit (blood only) 23.4 % (42.0-52.0); Hemoglobin 7.6 g/dl (14.0-18.0); Immature Granulocytes # (auto) 0.04 K/uL (0.01-0.20); Immature Granulocytes % (auto) 0.4 %; Mean Corpuscular Hemoglobin 31.1 pg (25.0-34.0); Mean Corpuscular Volume 95.9 fL (80.0-100.0); Platelet Count 165 K/uL (130-400); RDW Standard Deviation 64.5 fL (36.4-46.3); Red Blood Count 2.44 M/uL (4.70-6.10); White Blood Count 10.91 K/ul (4.8-10.8)
[2025-05-20 07:11] LABS: Anion Gap 6.0 (3-11); Blood Urea Nitrogen 41.0 mg/dl (6-23); Calcium 7.0 mg/dl (8.6-10.3); Carbon Dioxide 21.0 mmol/L (21-32); Chloride 113.0 mmol/L (98-107); Creatinine Clr Calc Pharmacy 36.6 ml/min; Glucose 158.0 mg/dl (70-99(Fasting)); Potassium 5.1 mmol/L (3.5-5.1); Sodium 140.0 mmol/L (136-145)
[2025-05-20 07:29] LABS: Polychromasia 1+
[2025-05-20] MEDS ORDERED: SODIUM CHLORIDE 0.9% 100 ML IV PRN (07:45)
--- NOTE | 2025-05-20 08:12 | XRay Report ---
EXAM: XR chest 1V portable CLINICAL HISTORY: Post-op hypotension. TECHNIQUE: An X-ray image of the chest is obtained in AP projection. COMPARISON: Prior CXR on 11/04/2024 (pre-admission). FINDINGS: Pulmonary Parenchyma: Prominent interlobular septa and interstitial thickening, likely to be due to interstitial edema No evidence of consolidation, collapse, or focal opacities. No pulmonary nodules are identified. No evidence of pleural effusion or pleural thickening. Heart and Mediastinum: Heart size and shape are normal. No mediastinal widening or masses. No hilar or mediastinal lymphadenopathy. Bony Thorax: Sternotomy wires (prior procedure). Bony thorax appears intact without fractures or deformities. Soft Tissues: Soft tissues overlying the chest wall are unremarkable. IMPRESSION: 1. Interval new finding of mild interstitial thickening, generalized interlobular thickening, likely to represent edematous changes other less likely differential is due to inflammatory process. 2. Needs to be correlated clinically. Electronically signed by Oscar Rachel 05-20-2025 08:11 AM
[2025-05-20] MEDS: EMPAGLIFLOZIN 25 MG TAB PO SCH (08:38)
[2025-05-20] MEDS: TAMSULOSIN HCL 0.4 MG CAP PO SCH (08:39)
[2025-05-20] MEDS: SODIUM ZIRCONIUM CYCLOSILICATE 10 GM PACKET PO SCH (08:39)
--- NOTE | 2025-05-20 09:44 | Pharmacy Report ---
Pharmacy Glycemic Short Note 2 - Date of Service May 20, 2025 - Glycemic Short BSG Results (Last 24 hours): 05/19/25 05/19/25 05/19/25 09:43 12:59 14:38 Glucose 197 H POC Glucose 163 H 178 H 05/19/25 05/19/25 05/19/25 14:38 17:04 20:41 Glucose 191 H POC Glucose 174 H 232 H 05/20/25 05/20/25 06:20 08:23 Glucose 158 H POC Glucose 186 H OUTPATIENT ANTIDIABETIC REGIMEN: * Jardiance 25mg PO daily * Ozempic 0.25mg SQ QWK * metformin 500mg PO BID * Lantus 25 units QAM * Humalog SSI (TDD max 60 units per last fill 11/19/24) ASSESSMENT: * [place] is a 75 year old male admitted status post lumbar decompression/fusion POD #1 with a history of insulin dependent type 2 diabetes mellitus. Pharmacy has been consulted to assist with glycemic management while inpatient. * Fasting BSG this AM slightly elevated, likely due to perioperative dexamethasone 4mg given yesterday, will continue with 50% of home basal dose as no ongoing steroids ordered at this time. * NovoLog at a weight based stress of 2, continue. No further glycemic stressors noted at this time. PLAN FOR INPATIENT GLYCEMIC CONTROL: * Hold outpatient oral diabetes medications * Basal insulin * Lantus 10 units SQ daily * Bolus insulin * NovoLog per scale ACHS or Q6hrs while NPO * Goal Range: Low 110 mg/dL - High 140 mg/dL * Correction Factor: 30 mg/dL/unit * Nutritional / Prandial insulin per carb ratio of 1 unit per 10 grams CHO consumed
[2025-05-20] MEDS: LANTUS PER UNIT CHARGE SC SCH (09:49)
[2025-05-20] MEDS: FERROUS SULFATE 325 MG TAB PO SCH (11:22)
--- NOTE | 2025-05-20 13:15 | Orthopedic Progress Note ---
Date of Service May 20, 2025 Assessment & Plan (1) Multilevel lumbosacral spondylosis with radiculopathy: Plan: At this time initiate physical therapy once he is stable. Monitor his progress throughout the next several days to determine disposition. Admission and Anticipated Discharge Date Admission Date: May 19, 2025 Subjective Patient's back pain is controlled leg symptoms are improved. Physical Exam Physical Exam: Patient is currently in bed. Is comfortable. Discussed active testing. Results & Data Vital Signs (Past 12 Hours) Vital Signs Temp Pulse Pulse Pulse Resp BP BP 05/20/25 12:17 36.6 C 68 16 109/56 L 05/20/25 11:47 36.6 C 68 16 99/58 L 05/20/25 11:32 36.4 C L 72 16 100/58 L 05/20/25 11:07 36.3 C L 71 16 102/55 L 05/20/25 09:53 05/20/25 08:02 36.7 C 71 18 111/55 L 05/20/25 07:32 67 05/20/25 03:39 36.7 C 71 16 101/54 L Pulse Ox Pulse Ox Pulse Ox Pulse Ox O2 Del Method O2 Flow Rate O2 Flow Rate 05/20/25 12:17 91 2 05/20/25 11:47 95 0 05/20/25 11:32 94 2 05/20/25 11:07 91 3 05/20/25 09:53 92 86 L 90 2 05/20/25 08:02 94 Nasal Cannula 2 05/20/25 07:32 05/20/25 03:39 96 Room Air O2 Flow Rate O2 Flow Rate 05/20/25 12:17 05/20/25 11:47 05/20/25 11:32 05/20/25 11:07 05/20/25 09:53 2 2 05/20/25 08:02 05/20/25 07:32 05/20/25 03:39 Queries Orthopedic Spine Acute Posthemorrhagic Anemia: Yes
[2025-05-20 13:55] LABS: Thyroid Stimulating Hormone 0.891 uIu/ml (0.300-4.500)
--- NOTE | 2025-05-20 13:55 | Hospitalist Progress Note ---
Date of Service May 20, 2025 Assessment & Plan (1) Postoperative hypotension: Plan: He transiently required Levophed while in the PACU. This has since been weaned off. He denies chest pain. No acute EKG changes seen. Continue telemetry. Hold amlodipine and lisinopril for now (2) Sinus pause: Plan: Seen on several telemetry strips. Coreg has been discontinued. Cardiology consultation requested. Temporary pacemaker patches have been placed in case they are needed (3) Acute blood loss anemia: Plan: Hemoglobin has dropped to 7.6. Blood transfusion ordered by primary service. Serial labs (4) Chronic kidney disease, stage III (moderate): Plan: Creatinine stable at 1.8. Monitor urine output. Serial labs (5) Essential hypertension: Plan: Postoperative hypotension has resolved but Coreg has been discontinued due to sinus pauses. Amlodipine and lisinopril are also temporarily on hold (6) Type 2 diabetes mellitus: Plan: ADA diet. Sliding scale coverage. Hold metformin (7) BPH (benign prostatic hyperplasia): Plan: Stable. Continue Flomax therapy Plan Eventual discharge to home per primary service. The hospitalist service will follow and manage the medical problems daily Admission and Anticipated Discharge Date Admission Date: May 19, 2025 Subjective Alert and oriented. No complaints. His blood pressure has stabilized. Unfortunately he is now having sinus pauses documented on the telemetry strips. Coreg has been discontinued and cardiology consultation requested. Thyroid profile is pending. Blood transfusion is underway for acute blood loss anemia related to his recent surgery with hemoglobin down to 7.6. Review of Systems 2 Review of Systems: Constitutionalno fever or chills ENTno blurred vision, no double vision, no epistaxis, no sore throat Respiratoryno cough, no wheezing, no shortness of breath Cardiacno palpitations, no chest pain, no syncope Ana nausea, vomiting, diarrhea, melena, hematochezia GUno urinary retention, no urinary incontinence, no dysuria, no hematuria Musculoskeletalno joint pain, no muscle tenderness. Postoperative lumbar discomfort as expected Skinlumbar surgery site is unremarkable. No bruising, no rashes, no pruritus Neurono isolated weakness, no paresthesia, no weakness Psychno depression, no anxiety Physical Exam 2 Physical Exam: General-awake but slightly lethargic from general anesthesia. No fever HEENT-head atraumatic and normocephalic, pupils equal and reactive to light, extraocular muscles intact Neck-no lymphadenopathy or thyromegaly, trachea midline Chest-clear to auscultation anteriorly. No rales, wheezing or rhonchi Cardiac-regular rate and rhythm, normal S1 and S2. Occasional premature beat Abdomen-normal bowel sounds, no hepatosplenomegaly Extremities-no cyanosis, clubbing, or edema Neuro-cranial nerves II through XII intact, motor and sensory function within normal limits, strength symmetrical, no focal deficits Psych-normal affect, normal mood Results & Data Results & Data Vital Signs (Past 12 Hours) Vital Signs Temp Pulse Pulse Pulse Resp BP BP 05/20/25 13:17 36.6 C 68 16 111/64 05/20/25 12:17 36.6 C 68 16 109/56 L 05/20/25 11:47 36.6 C 68 16 99/58 L 05/20/25 11:32 36.4 C L 72 16 100/58 L 05/20/25 11:07 36.3 C L 71 16 102/55 L 05/20/25 09:53 05/20/25 08:02 36.7 C 71 18 111/55 L 05/20/25 07:32 67 05/20/25 03:39 36.7 C 71 16 101/54 L Pulse Ox Pulse Ox Pulse Ox Pulse Ox O2 Del Method O2 Flow Rate O2 Flow Rate 05/20/25 13:17 91 2 05/20/25 12:17 91 2 05/20/25 11:47 95 2 05/20/25 11:32 94 2 05/20/25 11:07 91 3 05/20/25 09:53 92 86 L 90 2 05/20/25 08:02 94 Nasal Cannula 2 05/20/25 07:32 05/20/25 03:39 96 Room Air O2 Flow Rate O2 Flow Rate 05/20/25 13:17 05/20/25 12:17 05/20/25 11:47 05/20/25 11:32 05/20/25 11:07 05/20/25 09:53 2 2 05/20/25 08:02 05/20/25 07:32 05/20/25 03:39 Laboratory Results 05/20/25 06:20 05/20/25 06:20 PG Care Time/CCT Total # of Minutes Spent Total Time Spent with Patient: Total time spent is greater than 50% in coordination of care (as documented) at patient's floor/unit and/or counseling patient: Coding Level of Care Code 24380 SUB INP/OBS CARE 3/50MIN Diagnoses Postoperative hypotension I95.81 Sinus pause I45.5 Acute blood loss anemia D62 Chronic kidney disease, stage III (moderate) N18.30 Essential hypertension I10 Type 2 diabetes mellitus E11.9 BPH (benign prostatic hyperplasia) N40.0
--- NOTE | 2025-05-20 16:23 | Cardiology Consultation ---
Date of Consultation May 20, 2025 Assessment & Plan (1) Sinus pause: - 3 second pause x2. Possibly 2/2 hypoxia - not other pauses or rhythm abnormalities since - Patient is asymptomatic - Will restart patient's Coreg - Keep patient on the monitor over night. May keep pacer pads in place. Plan Patient seen and examined, chart reviewed. Patient has had several episodes of pauses in his rhythm, they are sinus pauses not AV block and they appear to be asymptomatic. After yesterday's pause his carvedilol was reduced and today he had another brief period of slow heart rhythm with a sinus pause. His history is not suggestive of outpatient bradycardia. I would continue to monitor on reduced carvedilol, if he is ready to go home otherwise we can consider outpatient monitoring. At this point I do not think there is any clear indication for permanent pacemaker. History of Present Illness Attending Physician: Mushtaq Mitchell, DO History of Present Illness [place] is a 75-year-old male with a past medical history of CABG x 4 (2014), afib, bilat ICA stenosis, CKD stage III, BPH, HTN, [id number] DM 2 who underwent an elective lumbar surgery today. He was hypotensive in the PACU requiring Levophed support. He was given IV fluids and Levophed was able to be weaned off. His EKG did not reveal any acute changes. Afterwards, the patient did develop sinus pauses in which cardiology was consulted for. He had been on Coreg which is currently on hold. He does have temporary pacer pads in place. Per tele review, the patient had two 3 second sinus pauses around noon today. Per conversation with the RN, the patient had taken off his oxygen at that time in which his O2 sats dropped into the 70s which could certainly play a role in this. He has had no other pauses or rhythm abnormalities since. Restarting his Coreg is reasonable at this point along with further monitoring over night. Would consider obtaining an additional EKG in the morning. Patient states he he felt he was asymptomatic at the time of these pauses. Upon my assessment, the patient is resting in bed. He does have oxygen on. He denies any dizziness or vision changes. He has not had any episodes of diaphoresis, shortness of breath or chest pain/pressure. No nausea or abdominal pain either. = Allergies Allergy/AdvReac Type Severity Reaction Status Date / Time morphine Allergy Severe Anaphylaxis Verified 05/19/25 07:37 Home Medications Medication Instructions Recorded Confirmed Type amlodipine 10 mg tablet 10 mg PO QAM 10/22/24 05/19/25 History aspirin 81 mg capsule 81 mg PO QPM 10/22/24 05/19/25 History carvedilol 6.25 mg tablet 6.25 mg PO BID 10/22/24 05/19/25 History duloxetine 30 mg capsule,delayed 30 mg PO QAM 10/22/24 05/19/25 History release empagliflozin 25 mg tablet 25 mg PO QAM 10/22/24 05/19/25 History (Jardiance) ferrous sulfate 325 mg (65 mg 325 mg PO QDL 10/22/24 05/19/25 History iron) tablet insulin glargine 100 unit/mL (3 20 unit subcut QAM 10/22/24 05/19/25 History mL) subcutaneous pen (Lantus Solostar U-100 Insulin) insulin lispro 100 unit/mL 1 sliding scale dose subcut 10/22/24 05/19/25 History subcutaneous pen USEASDIRECTD lisinopril 20 mg tablet 20 mg PO QPM 10/22/24 05/19/25 History metformin 500 mg tablet 500 mg PO BID 10/22/24 05/19/25 History pregabalin 75 mg capsule (Lyrica) 75 mg PO TID 10/22/24 05/19/25 History tamsulosin 0.4 mg capsule (Flomax) 0.8 mg PO QAM 10/22/24 05/19/25 History rosuvastatin 20 mg tablet 20 mg PO QPM 04/24/25 05/19/25 History semaglutide 0.25 mg or 0.5 mg (2 0.25 mg subcut WK 05/01/25 05/19/25 History mg/1.5 mL) subcutaneous pen injector sodium zirconium cyclosilicate 10 10 g PO DAILY 05/19/25 05/19/25 History gram oral powder packet (Lokelma) oxycodone 5 mg tablet 5 mg PO Q6H PRN pain #30 tabs 05/20/25 Rx tramadol 50 mg tablet 50 mg PO Q6H PRN pain, moderate 05/20/25 Rx #30 tabs Patient History Medical History Anemia BPH (benign prostatic hyperplasia) CAD (coronary artery disease) CABG x4 (2014) Cardiac stents 2 or 3 (most recent ~2011) Now follows with Dr Vinay Sewell Carotid artery stenosis Follows with vascular (Dr. Bettencourt) Diabetes mellitus, type 2 IDDM Hearing deficit History of basal cell carcinoma History of bloody stools 03/2025 - reason for Colon/EGD - unfounded - related to hemorrhoids History of [place] (myocardial infarction) (2008) History of shingles Hx 12/2023 Residual has nerve pain, taking duloxetine Hypertension controlled, stable per pt Surgical History History of basal cell carcinoma (BCC) excision removed in office History of bilateral cataract extraction History of bone marrow biopsy (03/12/25) [facility] History of cardiac cath Stents 2 or 3 total (most recent 2011), [facility] CABG x4 (2014), [place] 11/2024, while in hospital w/flu, no stents, aleksandr sewell History of colonoscopy (03/18/25) History of esophagogastroduodenoscopy (EGD) (03/18/25) History of left inguinal hernia repair History of parathyroidectomy (02/03/25) [facility] History of quadruple bypass (2014) CABG x4, History of right inguinal hernia repair History of sinus surgery History of wisdom tooth extraction Family History Other No family history of adverse response to anesthesia Social History Smoking Status: Former smoker Tobacco Type: Cigarettes and Smokeless Tobacco (Dip or Chew) Smoking End Date: in early 20's only; Second Hand Exposure: No; Do You Dip or Chew Tobacco: No (occasional early 20's only); Tobacco Cessation Education Requested by Patient: No Hx Alcohol Use: Yes Alcohol type: beer Hx Substance Use: No Preferred Language: Slovenian Communication Ability: Effective Parts Room Clerk Required: No Beliefs That Will Affect Care: None Current Living Situation: Spouse Other Information That Helps Us Care for You: No Feels Safe at Home: Yes Safety Concerns: Feels Safe At This Time Assistive Devices: Cane and Walker Review of Systems Review of Systems: see HPI Results & Data Vital Signs (Past 12 Hours) Vital Signs Temp Pulse Pulse Resp BP BP Pulse Ox 05/20/25 16:02 69 05/20/25 15:18 36.6 C 72 16 119/65 92 05/20/25 14:17 36.6 C 72 16 119/65 92 05/20/25 13:17 36.6 C 68 16 111/64 91 05/20/25 12:17 36.6 C 68 16 109/56 L 91 05/20/25 11:47 36.6 C 68 16 99/58 L 95 05/20/25 11:32 36.4 C L 72 16 100/58 L 94 05/20/25 11:07 36.3 C L 71 16 102/55 L 91 05/20/25 09:53 05/20/25 08:02 36.7 C 71 18 111/55 L 94 05/20/25 07:32 67 Pulse Ox Pulse Ox Pulse Ox O2 Del Method O2 Flow Rate O2 Flow Rate O2 Flow Rate 05/20/25 16:02 05/20/25 15:18 2 05/20/25 14:17 2 05/20/25 13:17 2 05/20/25 12:17 2 05/20/25 11:47 2 05/20/25 11:32 2 05/20/25 11:07 3 05/20/25 09:53 92 86 L 90 2 2 05/20/25 08:02 Nasal Cannula 2 05/20/25 07:32 O2 Flow Rate 05/20/25 16:02 05/20/25 15:18 05/20/25 14:17 05/20/25 13:17 05/20/25 12:17 05/20/25 11:47 05/20/25 11:32 05/20/25 11:07 05/20/25 09:53 2 05/20/25 08:02 05/20/25 07:32
[2025-05-20 21:20] LABS: Hematocrit (blood only) 30.9 % (42.0-52.0); Hemoglobin 9.9 g/dl (14.0-18.0)
[2025-05-21 07:36] LABS: Hematocrit (blood only) 32.7 % (42.0-52.0); Hemoglobin 10.7 g/dl (14.0-18.0); Immature Granulocytes # (auto) 0.05 K/uL (0.01-0.20); Immature Granulocytes % (auto) 0.4 %; Mean Corpuscular Hemoglobin 30.2 pg (25.0-34.0); Mean Corpuscular Volume 92.4 fL (80.0-100.0); Platelet Count 159 K/uL (130-400); RDW Standard Deviation 65.1 fL (36.4-46.3); Red Blood Count 3.54 M/uL (4.70-6.10); White Blood Count 11.21 K/ul (4.8-10.8)
[2025-05-21 07:49] LABS: Anion Gap 6.0 (3-11); Blood Urea Nitrogen 43.0 mg/dl (6-23); Calcium 7.6 mg/dl (8.6-10.3); Carbon Dioxide 22.0 mmol/L (21-32); Chloride 109.0 mmol/L (98-107); Creatinine Clr Calc Pharmacy 35.7 ml/min; Glucose 137.0 mg/dl (70-99(Fasting)); Potassium 5.0 mmol/L (3.5-5.1); Sodium 137.0 mmol/L (136-145)
[2025-05-21] MEDS: ACETAMINOPHEN 500 MG TAB PO PRN (07:57)
--- NOTE | 2025-05-21 08:17 | Orthopedic Progress Note ---
Date of Service May 21, 2025 Assessment & Plan (1) Multilevel lumbosacral spondylosis with radiculopathy: Plan: At this point we will continue physical therapy as tolerated. Monitor his cardiac status transferred to orthopedic floor once stable. Consider rehab placement in the next few days. Admission and Anticipated Discharge Date Admission Date: May 19, 2025 Subjective Back pain controlled leg symptoms improved. He tolerated ambulation well yesterday. Denies any shortness of breath or chest pain this morning. Physical Exam Physical Exam: Patient is in bed. He is comfortable. Is constricted testing. Results & Data Vital Signs (Past 12 Hours) Vital Signs Temp Pulse Pulse Pulse Resp BP Pulse Ox 05/21/25 08:04 37.9 C H 68 20 121/67 96 05/21/25 07:07 66 05/21/25 03:30 36.8 C 65 16 123/69 95 05/20/25 23:40 36.8 C 74 18 111/71 90 05/20/25 22:01 71 O2 Del Method O2 Flow Rate 05/21/25 08:04 Nasal Cannula 2 05/21/25 07:07 05/21/25 03:30 Nasal Cannula 2 05/20/25 23:40 Nasal Cannula 2 05/20/25 22:01 Queries Orthopedic Spine Acute Posthemorrhagic Anemia: Yes
[2025-05-21] MEDS ORDERED: GLUCAGON FOR INJ 1 MG VIAL SQ PRN (09:08)
[2025-05-21] MEDS ORDERED: GLUCOSE 40% GEL 15 GM TUBE PO PRN (09:08)
[2025-05-21] MEDS ORDERED: CARBOHYDRATES FOR HYPOGLYCEMIA PO PRN (09:08)
[2025-05-21] MEDS ORDERED: GLUCOSE 10 TAB/TUBE PO PRN (09:08)
[2025-05-21] MEDS ORDERED: DEXTROSE 50% 50 ML SYRINGE IV PRN (09:08)
[2025-05-21] MEDS: LANTUS PER UNIT CHARGE SC SCH (09:35)
--- NOTE | 2025-05-21 12:37 | Hospitalist Progress Note ---
Date of Service May 21, 2025 Assessment & Plan (1) Postoperative hypotension: Plan: He transiently required Levophed while in the PACU. This has since been weaned off. He denies chest pain. No acute EKG changes seen. Continue telemetry. Hold amlodipine and lisinopril for now (2) Sinus pause: Plan: Seen on several telemetry strips. Coreg has been discontinued. Cardiology consultation requested. Temporary pacemaker patches have been placed in case they are needed. Thyroid levels are acceptable (3) Acute blood loss anemia: Plan: Hemoglobin postoperativelydropped to 7.6. He received 2 units packed red blood cells yesterday, May 20. Hemoglobin is now 10.7 and will be followed with serial labs (4) Chronic kidney disease, stage III (moderate): Plan: Creatinine remained stable at 1.8. Monitor urine output. Serial labs (5) Essential hypertension: Plan: Postoperative hypotension has resolved but Coreg has been discontinued due to sinus pauses. Amlodipine and lisinopril are also temporarily on hold (6) Type 2 diabetes mellitus: Plan: ADA diet. Sliding scale coverage. Hold metformin (7) BPH (benign prostatic hyperplasia): Plan: Stable. Continue Flomax therapy Plan Eventual discharge to home per primary service. The hospitalist service will follow and manage the medical problems daily Admission and Anticipated Discharge Date Admission Date: May 19, 2025 Subjective Alert and oriented. No complaints. Unfortunately he developed significant sinus pauses yesterday, May 20, that necessitated stopping the Coreg. Temporary pacemaker patches are in place but they have not been needed. Cardiology consultation has been requested. Cardiac echo pending. Postoperative day #2 after lumbar surgery. Creatinine stable at 1.8. Glucose acceptable at 137. He received 2 units packed red blood cells yesterday, May 20, for hemoglobin 7.6. Hemoglobin has improved to 10.7. Free T4 level is normal and free T3 level is only slightly low at 2.1. Review of Systems 2 Review of Systems: Constitutionalno fever or chills ENTno blurred vision, no double vision, no epistaxis, no sore throat Respiratoryno cough, no wheezing, no shortness of breath Cardiacno palpitations, no chest pain, no syncope Ana nausea, vomiting, diarrhea, melena, hematochezia GUno urinary retention, no urinary incontinence, no dysuria, no hematuria Musculoskeletalno joint pain, no muscle tenderness. Postoperative lumbar discomfort as expected Skinlumbar surgery site is unremarkable. No bruising, no rashes, no pruritus Neurono isolated weakness, no paresthesia, no weakness Psychno depression, no anxiety Physical Exam 2 Physical Exam: General-awake but slightly lethargic from general anesthesia. No fever HEENT-head atraumatic and normocephalic, pupils equal and reactive to light, extraocular muscles intact Neck-no lymphadenopathy or thyromegaly, trachea midline Chest-clear to auscultation anteriorly. No rales, wheezing or rhonchi Cardiac-regular rate and rhythm, normal S1 and S2. Occasional premature beat Abdomen-normal bowel sounds, no hepatosplenomegaly Extremities-no cyanosis, clubbing, or edema Neuro-cranial nerves II through XII intact, motor and sensory function within normal limits, strength symmetrical, no focal deficits Psych-normal affect, normal mood Results & Data Results & Data Vital Signs (Past 12 Hours) Vital Signs Temp Pulse Pulse Pulse Resp BP Pulse Ox 05/21/25 11:27 36.8 C 61 18 100/55 L 95 05/21/25 09:00 05/21/25 08:04 37.9 C H 68 20 121/67 96 05/21/25 07:07 66 05/21/25 03:30 36.8 C 65 16 123/69 95 O2 Del Method O2 Flow Rate 05/21/25 11:27 Nasal Cannula 2 05/21/25 09:00 Nasal Cannula 2 05/21/25 08:04 Nasal Cannula 2 05/21/25 07:07 05/21/25 03:30 Nasal Cannula 2 Laboratory Results 05/21/25 06:56 05/21/25 06:56 PG Care Time/CCT Total # of Minutes Spent Total Time Spent with Patient: Total time spent is greater than 50% in coordination of care (as documented) at patient's floor/unit and/or counseling patient: Coding Level of Care Code 49704 SUB INP/OBS CARE 2/35MIN Diagnoses Postoperative hypotension I95.81 Sinus pause I45.5 Acute blood loss anemia D62 Chronic kidney disease, stage III (moderate) N18.30 Essential hypertension I10 Type 2 diabetes mellitus E11.9 BPH (benign prostatic hyperplasia) N40.0
[2025-05-21] MEDS: INSULIN ASPART PER UNIT CHARGE SC SCH (12:52)
[2025-05-22 06:18] LABS: Hematocrit (blood only) 31.7 % (42.0-52.0); Hemoglobin 10.5 g/dl (14.0-18.0); Immature Granulocytes # (auto) 0.05 K/uL (0.01-0.20); Immature Granulocytes % (auto) 0.5 %; Mean Corpuscular Hemoglobin 30.5 pg (25.0-34.0); Mean Corpuscular Volume 92.2 fL (80.0-100.0); Platelet Count 162 K/uL (130-400); RDW Standard Deviation 63.3 fL (36.4-46.3); Red Blood Count 3.44 M/uL (4.70-6.10); White Blood Count 9.24 K/ul (4.8-10.8)
[2025-05-22 06:38] LABS: Anion Gap 6.0 (3-11); Blood Urea Nitrogen 38.0 mg/dl (6-23); Calcium 7.8 mg/dl (8.6-10.3); Carbon Dioxide 22.0 mmol/L (21-32); Chloride 109.0 mmol/L (98-107); Creatinine Clr Calc Pharmacy 42.2 ml/min; Glucose 121.0 mg/dl (70-99(Fasting)); Potassium 4.9 mmol/L (3.5-5.1); Sodium 137.0 mmol/L (136-145)
--- NOTE | 2025-05-22 07:49 | Orthopedic Progress Note ---
Date of Service May 22, 2025 Assessment & Plan (1) Multilevel lumbosacral spondylosis with radiculopathy: Plan: [place] is postoperative day 3 status post L3-S1 decompression and fusion. Will continue with physical therapy today. Continue with pain control. Maintain JUAN drain due to high output. Work on aggressive bowel regimen. DVT prophylaxis is in the form of teds and SCDs. Currently also planning for discharge to SNF once medically stable Admission and Anticipated Discharge Date Admission Date: May 19, 2025 Subjective [place] is postoperative day 3 status post L3-S1 decompression and fusion. He is still on the cardiac floor due to hypotension, sinus pause and postoperative blood loss anemia. He was transfused 2 units of packed red blood cells yesterday. This morning he has no complaints. No shortness of breath. No chest pain. No leg pain. Back pain is controlled. He is passing flatus but no bowel movement. JUAN drain output last shift was 70 cc. Yesterday in physical therapy ambulating roughly 100 feet. H&H this morning are 10.5 and 31.7 respectively Review of Systems Review of Systems: All systems reviewed & are unremarkable except as noted in HPI & below Physical Exam Physical Exam: Laying in bed in no acute distress alert and oriented x 3, comfortable 5/5 strength bilateral lower extremities Lumbar dressing is clean dry and intact with functioning JUAN drain Results & Data Vital Signs (Past 12 Hours) Vital Signs Temp Pulse Pulse Resp BP Pulse Ox O2 Del Method 05/22/25 07:05 73 05/22/25 03:30 37.1 C 74 16 149/63 H 94 Nasal Cannula 05/21/25 23:15 36.8 C 66 18 126/70 93 Room Air 05/21/25 22:07 68 05/21/25 21:04 Nasal Cannula O2 Flow Rate 05/22/25 07:05 05/22/25 03:30 05/21/25 23:15 05/21/25 22:07 05/21/25 21:04 2 Queries Orthopedic Spine Acute Posthemorrhagic Anemia: Yes
[2025-05-22] MEDS: METOPROLOL TARTRATE 25 MG TAB PO SCH (09:35)
--- NOTE | 2025-05-22 10:05 | XRay Report ---
XR chest 1V portable CLINICAL HISTORY: hypoxia COMPARISON STUDY: 05/20/2025 FINDINGS: Stable CABG. Stable prominent cardiomegaly with mild pulmonary vascular congestion. Stable mildly hyperexpanded lungs. No consolidation or pleural effusion. No pneumothorax. IMPRESSION: Mild CHF. ACT 112: Negative or not required by law. Electronically signed by: Grupo Sewell M.D. 05/22/2025 10:03 AM
[2025-05-22] MEDS: FUROSEMIDE 40 MG/4 ML VIAL IV ONE (10:46)
--- NOTE | 2025-05-22 11:20 | Electrocardiogram Report ---
Test Reason : Blood Pressure : */* mmHG Vent. Rate : 59 BPM Atrial Rate : 59 BPM P-R Int : 172 ms QRS Dur : 84 ms QT Int : 452 ms P-R-T Axes : 57 -26 66 degrees QTcB Int : 447 ms Sinus bradycardia with occasional Premature ventricular complexes Anterior infarct (cited on or before , suspect misplaced V3 Abnormal ECG When compared with ECG of 04-Nov-2024 11:45, Premature ventricular complexes are now Present Questionable change in initial forces of Septal leads Nonspecific T wave abnormality no longer evident in Inferior leads T wave inversion now evident in Anterior leads Confirmed by Leodan Osman ([id number]) on 05/22/2025 11:20:05 AM Referred By: Mushtaq Mitchell Confirmed By: Leodan Osman
--- NOTE | 2025-05-22 12:02 | Hospitalist Progress Note ---
Date of Service May 22, 2025 Assessment & Plan (1) Postoperative hypotension: Plan: He transiently required Levophed while in the PACU. This has since been weaned off. He denies chest pain. No acute EKG changes seen. Continue telemetry. Hold amlodipine and lisinopril for now. He has been restarted on a beta- mahesh, metoprolol at low-dose twice daily. Amlodipine and lisinopril can be restarted at a later date if needed (2) Sinus pause: Plan: Seen on several telemetry strips. Coreg has been discontinued. Cardiology consultation requested. Temporary pacemaker patches have been placed in case they are needed. Thyroid levels are acceptable. He was started on low-dose metoprolol today, May 22 (3) Acute blood loss anemia: Plan: Hemoglobin postoperativelydropped to 7.6. He received 2 units packed red blood cells on May 20. Hemoglobin on improved to 10.7 and today is 10.5 on May 22. It appears to be stable. (4) Chronic kidney disease, stage III (moderate): Plan: Creatinine remains stable at 1.6 today, May 22. Monitor urine output. Serial labs (5) Essential hypertension: Plan: Postoperative hypotension has resolved but Coreg has been discontinued due to sinus pauses. Amlodipine and lisinopril are also temporarily on hold and could be started at a later date (6) Type 2 diabetes mellitus: Plan: ADA diet. Sliding scale coverage. Hold metformin while hospitalized but restart at discharge (7) BPH (benign prostatic hyperplasia): Plan: Stable. Continue Flomax therapy Plan Hopeful discharge to [facility] tomorrow, May 23 Admission and Anticipated Discharge Date Admission Date: May 19, 2025 Subjective Alert and oriented. No distress. He was told that he would be restarted on a beta-mahesh at a low dose but something different than carvedilol. Metoprolol 12.5 mg twice daily has been ordered. Chest x-ray also shows mild CHF that is probably diastolic in nature associated with considerable IV fluids administered this hospitalization. Intravenous Lasix ordered for today. Oxygen will be weaned off as tolerated. He probably can go to [facility] for rehab tomorrow, May 23, if he remains stable Review of Systems 2 Review of Systems: Constitutionalno fever or chills ENTno blurred vision, no double vision, no epistaxis, no sore throat Respiratoryno cough, no wheezing, no shortness of breath Cardiacno palpitations, no chest pain, no syncope Ana nausea, vomiting, diarrhea, melena, hematochezia GUno urinary retention, no urinary incontinence, no dysuria, no hematuria Musculoskeletalno joint pain, no muscle tenderness. Postoperative lumbar discomfort as expected Skinlumbar surgery site is unremarkable. No bruising, no rashes, no pruritus Neurono isolated weakness, no paresthesia, no weakness Psychno depression, no anxiety Physical Exam 2 Physical Exam: General-awake but slightly lethargic from general anesthesia. No fever HEENT-head atraumatic and normocephalic, pupils equal and reactive to light, extraocular muscles intact Neck-no lymphadenopathy or thyromegaly, trachea midline Chest-faint bibasilar inspiratory rales posteriorly. No wheezing. No rhonchi Cardiac-regular rate and rhythm, normal S1 and S2. Occasional premature beat Abdomen-normal bowel sounds, no hepatosplenomegaly Extremities-no cyanosis, clubbing, or edema Neuro-cranial nerves II through XII intact, motor and sensory function within normal limits, strength symmetrical, no focal deficits Psych-normal affect, normal mood Results & Data Results & Data Vital Signs (Past 12 Hours) Vital Signs Temp Pulse Pulse Pulse Resp BP Pulse Ox 05/22/25 11:51 36.9 C 55 L 18 127/63 97 05/22/25 08:15 36.8 C 69 16 145/65 H 94 05/22/25 08:00 05/22/25 07:05 73 05/22/25 03:30 37.1 C 74 16 149/63 H 94 O2 Del Method O2 Flow Rate 05/22/25 11:51 Nasal Cannula 2 05/22/25 08:15 Nasal Cannula 2 05/22/25 08:00 Nasal Cannula 2 05/22/25 07:05 05/22/25 03:30 Nasal Cannula Laboratory Results 05/22/25 05:33 05/22/25 05:33 PG Care Time/CCT Total # of Minutes Spent Total Time Spent with Patient: Total time spent is greater than 50% in coordination of care (as documented) at patient's floor/unit and/or counseling patient: Coding Level of Care Code 57836 SUB INP/OBS CARE 3/50MIN Diagnoses Postoperative hypotension I95.81 Sinus pause I45.5 Acute blood loss anemia D62 Chronic kidney disease, stage III (moderate) N18.30 Essential hypertension I10 Type 2 diabetes mellitus E11.9 BPH (benign prostatic hyperplasia) N40.0
--- NOTE | 2025-05-22 13:07 | XCELERA ---
[id number]
[2025-05-22 23:10] VITALS: RESP 16
[2025-05-23 07:06] LABS: Hematocrit (blood only) 31.9 % (42.0-52.0); Hemoglobin 10.7 g/dl (14.0-18.0); Immature Granulocytes # (auto) 0.03 K/uL (0.01-0.20); Immature Granulocytes % (auto) 0.3 %; Mean Corpuscular Hemoglobin 30.7 pg (25.0-34.0); Mean Corpuscular Volume 91.4 fL (80.0-100.0); Platelet Count 180 K/uL (130-400); RDW Standard Deviation 60.9 fL (36.4-46.3); Red Blood Count 3.49 M/uL (4.70-6.10); White Blood Count 8.91 K/ul (4.8-10.8)
[2025-05-23 07:21] LABS: Anion Gap 6.0 (3-11); Blood Urea Nitrogen 38.0 mg/dl (6-23); Calcium 8.3 mg/dl (8.6-10.3); Carbon Dioxide 25.0 mmol/L (21-32); Chloride 104.0 mmol/L (98-107); Creatinine Clr Calc Pharmacy 41.7 ml/min; Glucose 103.0 mg/dl (70-99(Fasting)); Potassium 4.7 mmol/L (3.5-5.1); Sodium 135.0 mmol/L (136-145)
[2025-05-23 08:01] VITALS: BP 159/65; TEMP 98.1; O2SAT 94
--- NOTE | 2025-05-23 10:25 | Discharge Summary ---
Date of Service May 23, 2025 Admission HPI Per Admitting Provider This is a 75-year-old male who presents chronic persistent back and leg pain of failing course of nonoperative care is here for surgical invention. Principal Diagnosis Multilevel lumbar spondylosis with radiculopathy Discharge Data Allergies Allergy/AdvReac Type Severity Reaction Status Date / Time morphine Allergy Severe Anaphylaxis Verified 05/19/25 07:37 Consultations 05/19/25 16:05 Consult Hospitalist Routine 05/20/25 13:07 Consult Cardiology Routine Procedures Performed Operation Date: 05/19/25 09:05 Actual Procedures p L3-S1 Decompression and Fusion(Not Applicable) - Mushtaq Mitchell DO Ordered Studies 05/19/25 [place] lumbar spine 2-3V Routine Hospital Course (1) Multilevel lumbosacral spondylosis with radiculopathy: Patient is 1 multilevel lumbar decompression fusion tolerated so stayed or thopedic for postoperative. Possibly progressed steadily throughout his stay. Improvement of his leg symptoms. Strength improving. JUAN drain decreasing appropriately. Subsidy discharged to rehab. Chair. Discharge order instructions from the chart for further review. Total Time Total Time Spent Total Time Spent (In Minutes): 20 minutes Discharge Plan Discharge Items Patient Disposition: Transfer Inpatient Rehab Fac Reason For Visit: Lumbosacral Spondylosis with Radiculopathy, Degene Discharge Diagnosis: Lumbar spondylosis with radiculopathy Activity: As commented below Non-emergency contact: Primary Care Provider Call non-emergency contact if: you have any medication questions Follow-up/Referrals: Diane Gooden CRNP [Primary Care Provider] - Diet: Regular Addtl Attending Provider Instructions: ACTIVITY RECOMMENDATIONS: SELF CARE INSTRUCTIONS AFTER THORACIC/LUMBAR FUSIONS 1. You may walk to your tolerance. It is good exercise for your legs and back. Expect some back and intermittent leg aches and pains. 2. You may perform "counter-top" level activities (make a sandwich, chilango with a project, etc.). 3. No bending or lifting of more than 10 pounds or back twisting of any nature (roll like a log when turning in bed). 4. You may ride in a car for 20-30 minutes at a time. No driving until after your first visit with your doctor. 5. Frequent changes of position and restricting sitting to 30 minutes at a time will help limit the amount of back spasms and stiffness you may experience. 6. You may discontinue the use of ambulatory aids (cane, crutches, etc.) once your strength and confidence allow. 7. 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 Do not take a tub bath, sit in a hot tub or go into a swimming pool until after your first recheck in the office. 8. You may resume previous diet. SPECIAL CARE INSTRUCTIONS: VERY IMPORTANT TO READ AND REVIEW A. Your surgical incision has been closed with a cosmetic suture under the skin that will dissolve in about 6 weeks. In 14 days, you can use a pair of clean scissors and cut the suture that is left outside of the skin at the ends of your incision. 1. The small skin tapes can be removed 7 days after surgery if they have not fallen off by that point. 2. You may keep the wound open to air as much as possible to promote healing after post-op day number 5 unless told otherwise by your doctor. 3. If you think the wound looks like it is becoming infected (redness or worsening drainage) and/or you are experiencing fever, chill or worsening back pain and muscle spasms, contact the office so that we may evaluate you as soon as possible. B. Complications are uncommon, but please contact us if you have any signs or symptoms of: 1. wound infection (fever higher than 102.5 degrees F, redness, separation of wound, drainage, or increasing pain from the incision) 2. blood clots in legs (pain, swelling, redness and warmth in legs) 3. urinary tract infection (fever higher than 102.5 degrees F, burning upon urination or increased frequency of urination) 4. nerve problems (inability to walk on your toes or heels, numbness, loss of bowel or bladder control) 5. any other symptoms that concern you C. Please call the office at if you have any concerns or questions about your operation or recovery. D. No smoking! Smoking drastically decreases the chance of a solid fusion. E. Do not take any anti-inflammatory medications (Indocin, Advil, Motrin, Aspirin, Naprosyn, etc.) as these may inhibit the chance of a solid fusion. Tylenol is okay to take for pain. MANAGING PAIN AFTER SPINAL SURGERY 1. Narcotic medication is intended for short-term use and will be provided for surgical pain. Surgical pain usually lasts for a period of 4-6 weeks. Narcotic medication includes Percocet, Vicodin, Darvocet, Tylenol #3 or Lortab. 2. Longer-term pain is more appropriately treated with non-narcotic medication such as Tylenol ES. 3. Muscle spasm is not appropriately treated with narcotics. Muscle relaxers such as Soma, Flexeril or Skelaxin can be used along with Tylenol ES. 4. Remember that we all live with some "aches and pains". This is not unusual or uncommon after an injury or as we get older. a. Back pain is expected and may include muscle spasms for 4 to 6 weeks after surgery. The pain should gradually improve. If the pain worsens for no apparent reason, please contact the office. b. Intermittent leg pain may also be experienced and should not be concerned about unless it worsens for no apparent reason. If so, please contact the office. 5. We will provide appropriate medication within the normal guidelines of their prescribed use. We will also be very cautious and aware of potential abuse and extended duration of patients' medication needs. a. Pain medications are for your comfort and to assist with sleep and rest so that the tissue can heal. They are not provided in order to return to normal activity and should not be used through the day. To do so or worsening pain at night can result from ongoing tissue damage and development of tolerance to the prescribed medicine. 6. Please allow 2-3 days to process refills. Prescriptions will not be mailed but must be picked up at the office. FOLLOW UP VISIT: Keep your scheduled follow-up appointment. Any questions, please call the office at . Pending Studies at Discharge: No Stand-Alone Forms: [facility] Patient informed of condition?: Yes DNR: No Discharge Level of Care: Acute rehab Communicable Disease: No Discharge Prognosis: Improving Lines: None Urinary Catheter: No Medications and DC Order Prescriptions: New tramadol 50 mg tablet 50 mg PO Q6H PRN (Reason: pain, moderate) Qty: 30 0RF oxycodone 5 mg tablet 5 mg PO Q6H PRN (Reason: pain) Qty: 30 0RF Rx Instructions: Oxycodone for severe pain tramadol for mild pain Continued metformin 500 mg Tablet 500 mg PO BID carvedilol 6.25 mg Tablet 6.25 mg PO BID Rx Instructions: must administer with a meal/food lisinopril 20 mg Tablet 20 mg PO QPM tamsulosin [Flomax] 0.4 mg Capsule 0.8 mg PO QAM amlodipine 10 mg Tablet 10 mg PO QAM ferrous sulfate 325 mg (65 mg iron) Tablet 325 mg PO QDL pregabalin [Lyrica] 75 mg Capsule 75 mg PO TID Jardiance 25 mg Tablet 25 mg PO QAM duloxetine 30 mg Capsule,Delayed Release(Dr/Ec) 30 mg PO QAM insulin lispro [Humalog Pen] 100 unit/mL Insulin Pen 1 sliding scale dose SUBCUT USEASDIRECTD insulin glargine [Lantus Solostar U-100 Insulin] 100 unit/mL (3 mL) Insulin Pen 20 unit SUBCUT QAM aspirin 81 mg Capsule 81 mg PO QPM rosuvastatin 20 mg Tablet 20 mg PO QPM Ozempic 0.25 mg or 0.5 mg(2 mg/1.5 mL) Pen Injector 0.25 mg SUBCUT WK Lokelma 10 gram Powder In Packet 10 g PO DAILY Discharge Orders: Discharge Order (Routine); Ordered 05/23/25 Ordered By: Mushtaq Mitchell Admission Data Admit Date/Time: 05/19/25 15:18 Attending Provider: Mushtaq Mitchell Admit Provider: Richmond Christianson Primary Care Provider: Diane Gooden Other Providers: [facility],[employer]; [place] Christianson; [facility]; IRB Approved Study,Luiz; Beck Antonio; Yaw Mcdonald; Garcia Roy; Leodan Osman; Julián Manzo Jr; Leno Khan; Katiana River; Margaret Vasquez; Ezequiel Painter; Ezequiel Bass; Joann Sullivan; Jesse Bosch; Alka Post; Jesse Gunderson; Jose Nguyen; Sp Garcia; Jong Zaragoza; Raudel Kim; Daniel Sánchez; Emily Falcon R
--- NOTE | 2025-05-23 12:01 | Hospitalist Progress Note ---
Date of Service May 23, 2025 Assessment & Plan (1) Postoperative hypotension: Plan: He transiently required Levophed while in the PACU. This has since been weaned off. He denies chest pain. No acute EKG changes seen. Continue telemetry. Amlodipine and lisinopril have been discontinued. He has been restarted on a beta-mahesh, metoprolol at low-dose twice daily. He has tolerated this quite well so far. Amlodipine and lisinopril will not be restarted at this time. (2) Sinus pause: Plan: Seen on several telemetry strips. Coreg has been discontinued. Cardiology consultation appreciated. Fortunately he has not required the use of his temporary pacemaker patches. Thyroid levels are acceptable. He was started on low-dose metoprolol on May 25 and has tolerated this quite well. This will continue indefinitely in place of the Coreg. (3) Acute blood loss anemia: Plan: Hemoglobin postoperativelydropped to 7.6. He received 2 units packed red blood cells on May 20. Hemoglobin on improved to 10.7 and is now stable. (4) Chronic kidney disease, stage III (moderate): Plan: Creatinine remains stable. Monitor urine output. Serial labs (5) Essential hypertension: Plan: Postoperative hypotension has resolved. He transiently required Levophed while in the PACU. He is now on metoprolol. Amlodipine and lisinopril will not be restarted at this time. (6) Type 2 diabetes mellitus: Plan: ADA diet. Sliding scale coverage. Hold metformin while hospitalized but restart at discharge (7) BPH (benign prostatic hyperplasia): Plan: Stable. Continue Flomax therapy Plan He is medically stable for discharge when arrangements are finalized. Admission and Anticipated Discharge Date Admission Date: May 19, 2025 Subjective Medically stable. Good diuresis with IV Lasix. He is now on room air. Hemoglobin is stable. He is tolerating the addition of metoprolol quite well. Postoperative day #4 after his lumbar surgery. Hemoglobin is now stable. He is medically stable for discharge Review of Systems 2 Review of Systems: Constitutionalno fever or chills ENTno blurred vision, no double vision, no epistaxis, no sore throat Respiratoryno cough, no wheezing, no shortness of breath Cardiacno palpitations, no chest pain, no syncope Ana nausea, vomiting, diarrhea, melena, hematochezia GUno urinary retention, no urinary incontinence, no dysuria, no hematuria Musculoskeletalno joint pain, no muscle tenderness. Postoperative lumbar discomfort as expected Skinlumbar surgery site is unremarkable. No bruising, no rashes, no pruritus Neurono isolated weakness, no paresthesia, no weakness Psychno depression, no anxiety Physical Exam 2 Physical Exam: General-awake but slightly lethargic from general anesthesia. No fever HEENT-head atraumatic and normocephalic, pupils equal and reactive to light, extraocular muscles intact Neck-no lymphadenopathy or thyromegaly, trachea midline Chest-faint bibasilar inspiratory rales posteriorly. No wheezing. No rhonchi Cardiac-regular rate and rhythm, normal S1 and S2. Occasional premature beat Abdomen-normal bowel sounds, no hepatosplenomegaly Extremities-no cyanosis, clubbing, or edema Neuro-cranial nerves II through XII intact, motor and sensory function within normal limits, strength symmetrical, no focal deficits Psych-normal affect, normal mood Results & Data Results & Data Vital Signs (Past 12 Hours) Vital Signs Temp Pulse Pulse Resp BP Pulse Ox O2 Del Method 05/23/25 10:16 64 05/23/25 08:00 36.7 C 78 16 159/65 H 94 Room Air 05/23/25 03:52 36.9 C 64 16 131/62 95 Nasal Cannula O2 Flow Rate 05/23/25 10:16 05/23/25 08:00 05/23/25 03:52 2 Laboratory Results 05/23/25 06:46 05/23/25 06:46 PG Care Time/CCT Total # of Minutes Spent Total Time Spent with Patient: Total time spent is greater than 50% in coordination of care (as documented) at patient's floor/unit and/or counseling patient: Coding Level of Care Code 79951 SUB INP/OBS CARE 2/35MIN Diagnoses Postoperative hypotension I95.81 Sinus pause I45.5 Acute blood loss anemia D62 Chronic kidney disease, stage III (moderate) N18.30 Essential hypertension I10 Type 2 diabetes mellitus E11.9 BPH (benign prostatic hyperplasia) N40.0
[2025-05-23 13:16] VITALS: PULSE 69
--- NOTE | 2025-05-23 15:15 | Electrocardiogram Report ---
Test Reason : Blood Pressure : */* mmHG Vent. Rate : 71 BPM Atrial Rate : 71 BPM P-R Int : 196 ms QRS Dur : 88 ms QT Int : 390 ms P-R-T Axes : 53 -9 29 degrees QTcB Int : 423 ms Sinus rhythm with Premature ventricular complexes Nonspecific T wave abnormality Abnormal ECG When compared with ECG of 19-May-2025 14:30, (unconfirmed) Premature ventricular complexes are now Present Nonspecific T wave abnormality has replaced inverted T waves in Anterior leads T wave amplitude has decreased in Lateral leads Confirmed by Leodan Osman ([id number]) on 05/23/2025 3:14:53 PM Referred By: Mushtaq Mitchell Confirmed By: Leodan Osman
== END 2025-05-23 15:16 | DRG 427 ==
LOC: ASU 07:30 → INTOOBSV 15:18 → 2W 15:18